=== PATIENT | female | born 1950 | race Caucasian/White ===

== ENCOUNTER 2020-10-22 19:52 | Emergency (ER) | payer MEDICARE, BC, SELFPAY ==
--- NOTE | 2020-10-22 19:53 | ED.GENADUL_ITS ---
Discharge Plan Disposition Patient Disposition: HOME Condition: Good Discharge Details Clinical Impression: Scalp hematoma Primary Care Provider: Bryanna,Local ED Provider: Jeremiah Whalen Meds and New Rx's Prescriptions: Continued nystatin 100,000 unit/mL Suspension 5 ml PO QID RF: 0 ipratropium-albuterol 0.5 mg-3 mg(2.5 mg base)/3 mL Solution For Nebulization 3 ml INHALATION QID PRNRF: 0 sertraline 100 mg Tablet 200 mg PO DAILY RF: 0 cyanocobalamin (vitamin B-12) 1,000 mcg Tablet 1,000 mcg PO DAILY RF: 0 acetaminophen 650 mg Tablet Extended Release 650 mg PO Q8H PRNRF: 0 meclizine 25 mg Tablet 25 mg PO TID PRNRF: 0 levothyroxine 150 mcg Tablet 150 mcg PO DAILY RF: 0 ibuprofen 200 mg Tablet 400 mg PO BID RF: 0 betamethasone dipropionate 0.05 % Cream 1 applic TOPICAL BID RF: 0 montelukast 10 mg Tablet 10 mg PO HS RF: 0 epinephrine 0.3 mg/0.3 mL Auto-Injector 0.3 mg IM ONCE PRNRF: 0 albuterol sulfate [ProAir HFA] 90 mcg/actuation Hfa Aerosol Inhaler 1 - 2 puff INHALATION Q6H PRNRF: 0 fluticasone propionate 50 mcg/actuation [place],Suspension 2 spray INTRANASAL DAILY RF: 0 dextroamphetamine-amphetamine [Adderall XR] 5 mg Capsule,Extended Release 24hr 5 mg PO DAILY RF: 0 rosuvastatin 5 mg Tablet 5 mg PO HS RF: 0 cholecalciferol (vitamin D3) 50 mcg (2,000 unit) Capsule 2,000 unit PO DAILY RF: 0 Discharge Instructions Instructions: Head Injury (ED) Additional Instructions: CT scan shows no evidence of bleed or fracture. Ice on and off to the back your head where the swelling is. Tylenol or Motrin as needed for pain. Return to ED for severe worsening headache, neurologic changes, persistent vomiting, other concerns Medical Decision Making Patient status post slip and fall striking the back of her head. Questionable LOC. Large hematoma to the occiput. Cervical spine cleared clinically. GCS of 15 and normal neurologic exam. Not on blood thinners. However, patient very concerned because of multiple previous head injuries. Also concerned because of the large hematoma. Is visiting from [place] and staying with son. Will obtain CT head though I think likelihood of skull fracture or intracranial hemorrhage is low. CT head negative for intracranial hemorrhage or skull fracture. Patient will be discharged home. Ice on and off to the scalp hematoma. Tylenol or Motrin as needed. Return to ED for severe worsening headache, neurologic changes, persistent vomiting, other things HPI General Mode of arrival: ambulatory . Date/Time Provider Initiated Documentation: 10/22/20 19:53 . Limitations to Documentation: no limitations . Information obtained by: patient and RN notes reviewed . HPI Narrative: Patient presents to ED with head injury status post slip and falling backwards in a parking lot. Patient had taken dogs out. She got tangled up in the leashes and fell backwards off a curb striking her head. She is unsure whether she has loss of consciousness or not. She is not on blood thinners but does take Advil twice a day. She denies any neck or back pain. She has swelling and pain to the back of her head. She has a scrape on her hand. She has no neurologic changes. She has slight headache. She has no nausea vomiting. She is concerned because of multiple previous head injuries. Related Data Home Medications Medication Instructions Recorded Confirmed acetaminophen 650 mg PO Q8H PRN 10/22/20 10/22/20 albuterol sulfate [ProAir HFA] 1 - 2 puff INHALATION Q6H PRN 10/22/20 10/22/20 betamethasone dipropionate 1 applic TOPICAL BID 10/22/20 10/22/20 cholecalciferol (vitamin D3) 2,000 unit PO DAILY 10/22/20 10/22/20 cyanocobalamin (vitamin B-12) 1,000 mcg PO DAILY 10/22/20 10/22/20 dextroamphetamine-amphetamine 5 mg PO DAILY 10/22/20 10/22/20 [Adderall XR] epinephrine 0.3 mg IM ONCE PRN 10/22/20 10/22/20 fluticasone propionate 2 spray INTRANASAL DAILY 10/22/20 10/22/20 ibuprofen 400 mg PO BID 10/22/20 10/22/20 ipratropium-albuterol 3 ml INHALATION QID PRN 10/22/20 10/22/20 levothyroxine 150 mcg PO DAILY 10/22/20 10/22/20 meclizine 25 mg PO TID PRN 10/22/20 10/22/20 montelukast 10 mg PO HS 10/22/20 10/22/20 nystatin 5 ml PO QID 10/22/20 10/22/20 rosuvastatin 5 mg PO HS 10/22/20 10/22/20 sertraline 200 mg PO DAILY 10/22/20 10/22/20 Allergies Allergy/AdvReac Type Severity Reaction Status Date / Time codeine Allergy Other (See Unverified 10/22/20 20:33 Comment) Latex, Natural Rubber Allergy Hives Unverified 10/22/20 20:33 lithium Allergy Unverified 10/22/20 20:33 nabumetone Allergy Unverified 10/22/20 20:33 Penicillins Allergy Hives Unverified 10/22/20 20:33 methacholine AdvReac Intermediate Hives Unverified 10/22/20 20:33 adhesive AdvReac Skin Rash Unverified 10/22/20 20:33 amlodipine AdvReac Skin Rash Unverified 10/22/20 20:33 Antihistamines - Alkylamine AdvReac Unverified 10/22/20 20:33 bupropion AdvReac Other (See Unverified 10/22/20 20:33 Comment) carbamazepine AdvReac Unverified 10/22/20 20:33 dicyclomine AdvReac Other (See Unverified 10/22/20 20:33 Comment) fenofibrate AdvReac Other (See Unverified 10/22/20 20:33 Comment) fluoxetine AdvReac Other (See Unverified 10/22/20 20:33 Comment) fluticasone AdvReac Skin Rash Unverified 10/22/20 20:33 gabapentin AdvReac Other (See Unverified 10/22/20 20:33 Comment) lorazepam AdvReac Unverified 10/22/20 20:33 methylphenidate AdvReac Other (See Unverified 10/22/20 20:33 Comment) metoclopramide AdvReac Skin Rash Unverified 10/22/20 20:33 nitrile AdvReac Skin Rash Unverified 10/22/20 20:33 prednisone AdvReac Other (See Unverified 10/22/20 20:33 Comment) pregabalin AdvReac Unverified 10/22/20 20:33 shellfish derived AdvReac Dizziness/L Unverified 10/22/20 20:33 ighthead [id number]-[id number]-[id number] Reductase AdvReac Other (See Unverified 10/22/20 20:33 Inhibitor Comment) Sulfa (Sulfonamide AdvReac Nausea Unverified 10/22/20 20:33 Antibiotics) theophylline AdvReac Other (See Unverified 10/22/20 20:33 Comment) Review of Systems Narrative: As documented in HPI otherwise negative as below. Const: no fever, chills, weakness Resp: no cough, SOB, pleuritic pain CV: no CP, diaphoresis, edema, syncope GI: no abdominal pain, nausea, vomiting, diarrhea Neuro: no numbness, focal weakness, confusion PFSH Medical History Asthma Hypercholesterolemia Hypothyroid Surgical History No significant past surgical history Social History Smoking/Tobacco Use Status: Never Smoking risk assessment performed?: Yes Alcohol Intake: never Substance use type: does not use Do you feel safe at home: Yes Do you feel safe in your relationship?: Yes Exam Narrative Exam Narrative: Const: WDWN elderly female in NAD. HEENT: NC. Occipital hematoma, no laceration. Normal facial exam. Neck: Supple. Trachea midline. No c-spine tenderness. Lungs: Normal respiratory effort. Cor: Good radial pulses. Back: No spinal tenderness. Neuro: GCS 15. A+O x 3. Normal speech, mentation, gait. Cranial nerves II - XII grossly intact. No gross motor or sensory deficit. Ext: No deformity or tenderness. Skin: Warm and dry without laceration. Abrasion to palm of right hand.
[2020-10-22 20:01] VITALS: BP 146/50; PULSE 62; RESP 16; TEMP 36.4; O2SAT 96
[2020-10-22] MEDS: Bacitracin 1 PACKET (20:17)
--- NOTE | 2020-10-22 20:24 | NUR.NOTE ---
Nursing Note: ABRASION ON RIGHT HAND CLEANED WITH SALINE AND BACITRACIN WITH BANDAID PLACED ON WOUND. EDUCATION ON WOUND CARE DONE AT BEDSIDE.
--- NOTE | 2020-10-22 20:30 | DI.CT_ITS ---
EXAM: CT HEAD WO CLINICAL HISTORY: trauma/fall. TECHNIQUE: Imaging Protocol: Axial computed tomography images with coronal and sagittal reformatted images were created and reviewed COMPARISON: No exams were available for comparison FINDINGS: There are no skull fractures nor fluid in the visualized paranasal sinuses. There is no evidence of intracranial hemorrhage, mass effect, or shift of midline structures. There are no extra-axial fluid collections. The ventricles are not enlarged or shifted and there is no blo od within the ventricular system nor within the basal cisterns. IMPRESSION: No acute intracranial findings on this noninfused CT scan of the brain. RADIATION DOSE DELIVERED: 803.71mGy.cm Total DLP DATA REPOSITORY: All CT scans at this facility are submitted to the National Radiology Data Registry (NRDR) Dose Index Registry (DIR) with the [employer] ([employer]). RADIATION OPTIMIZATION: All CT scans at this facility use at least one of these dose optimization te chniques: automated exposure control; mA and/or kV adjustment per patient size (includes targeted exa ms where dose is matched to clinical indication); or iterative reconstruction.
--- NOTE | 2020-10-22 21:01 | DI.VRAD_ITS ---
PROCEDURE INFORMATION: Exam: CT Head Without Contrast Exam date and time: 10/22/2020 8:31 PM Age: 70 years old Clinical indication: Injury or trauma; Fall; Blunt trauma (contusions or hematomas); Consciousness not specified; Injury date: 10/22/20; Injury details: Fell while walking the dog TECHNIQUE: Imaging protocol: Computed tomography of the head without contrast. Radiation optimization: All CT scans at this facility use at least one of these dose optimization techniques: automated exposure control; mA and/or kV adjustment per patient size (includes targeted exams where dose is matched to clinical indication); or iterative reconstruction. COMPARISON: No relevant prior studies available. FINDINGS: Brain: No hyperdense finding to suggest acute intracranial hemorrhage. Age appropriate, global cerebral atrophy. Ill-defined foci of hypodensity in the periventricular white matter bilaterally consistent with chronic small vessel ischemic changes. No additional cerebral parenchymal abnormalities identified. Cerebral ventricles: Ventricular enlargement likely related to cerebral atrophy. Bones/joints: Unremarkable. No acute skull fracture. Paranasal sinuses: Visualized sinuses are unremarkable. No fluid levels. Mastoid air cells: Visualized mastoid air cells are well aerated. Soft tissues: Posterolateral right high scalp contusion. IMPRESSION: 1. No acute intracranial abnormalities identified. Specifically no CT evidence of mass, hemorrhage, or acute infarction. 2. Posterolateral right high scalp contusion. No adjacent skull fracture. 3. Age appropriate cerebral atrophy with chronic small vessel ischemic changes. Dictated and Authenticated by: Félix Azar MD. Ordering:LEO Daniels MD
[2020-10-22 21:15] VITALS: BP 130/74; PULSE 80; RESP 15; TEMP 36.9; O2SAT 99
== END 2020-10-22 21:10 | disposition home or self-care (01) ==
PROVIDERS: Emergency Provider Emergency Medicine
DX: S00.03XA Contusion of scalp, initial encounter (principal); S60.511A Abrasion of right hand, initial encounter; W18.39XA Other fall on same level, initial encounter; R40.2412 Glasgow coma scale score 13-15, at arrival to emergency department
CPT/HCPCS: 99284; 70450